=== PATIENT | male | born 1995 | race Caucasian/White ===

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

== ENCOUNTER 2017-06-21 13:40 | Emergency (ER) | payer MEDICAID, SELFPAY | END 2017-06-21 17:13 | disposition home or self-care (01) | LOC: M ED 13:40 | DX: F60.9 Personality disorder, unspecified (principal); F90.9 Attention-deficit hyperactivity disorder, unspecified type; Z79.899 Other long term (current) drug therapy | CPT/HCPCS: 99284 ==

== ENCOUNTER 2018-09-13 12:07 | Emergency (ER) | payer MEDICAID ==
[~2018-09-13] VITALS: Ht 177.8 cm; Wt 103.8 kg
[~2018-09-13 12:07] MED LIST: ADDE25CA; SERT50TA PO
[2018-09-13] MEDS ORDERED: LORazepam 2 MG/ML VIAL (J2060) IV STA (12:20)
[2018-09-13] MEDS ORDERED: ONDANSETRON 4MG/2ML VIAL (J2405) IV ONE (12:30)
[2018-09-13] MEDS: MORPHINE 4 MG/ML 1ML VIAL/SYRINGE (J2270) IV PRN ×2 (12:32→15:00)
[2018-09-13 12:34] LABS: HEMOGLOBIN 14.4 g/dl (13.5-17.5); MEAN CORPUSCULAR HEMOGLOBIN 29.6 pg (27.0-33.0); MEAN CORPUSCULAR HGB CONC 33.5 g/dl (32.0-36.5); MEAN CORPUSCULAR VOLUME 88.3 fl (80.0-96.0); PLATELET COUNT, AUTOMATED 241 10^3/uL (150-450); RED BLOOD COUNT 4.87 10^6/uL (4.30-6.10); WHITE BLOOD COUNT 7.9 10^3/uL (4.0-10.0)
[2018-09-13] MEDS ORDERED: ISOVUE-370 76% 125ML VIAL (Q9967 PER ML) As Ordered ONE (12:54)
[2018-09-13 13:04] LABS: INR 1.12; PARTIAL THROMBOPLASTIN TIME 20.4 SECONDS (25.4-37.6); PROTHROMBIN TIME 14.6 SECONDS (12.1-14.4)
[2018-09-13 13:05] LABS: ALBUMIN 4.2 GM/DL (3.2-5.2); ALT/SGPT 25 U/L (12-78); BILIRUBIN,DIRECT < 0.1 MG/DL (0.0-0.2); BILIRUBIN,TOTAL 0.4 MG/DL (0.2-1.0); BLOOD UREA NITROGEN 5 MG/DL (7-18); CARBON DIOXIDE LEVEL 24 MEQ/L (21-32); CHLORIDE LEVEL 106 MEQ/L (98-107); CREATININE FOR GFR 1.18 MG/DL (0.70-1.30); GLOMERULAR FILTRATION RATE > 60.0 (>60); GLUCOSE, FASTING 92 MG/DL (70-100); SODIUM LEVEL 139 MEQ/L (136-145); TOTAL PROTEIN 7.8 GM/DL (6.4-8.2)
--- NOTE | 2018-09-13 13:27 | REP ---
CT Head without contrast HISTORY: Trauma COMPARISON: 08/08/2015 There is no intraparenchymal hemorrhage, acute infarct, mass or midline shift. The ventricular system is normal in appearance. There is no extra cerebral collection. There is no fracture. The visualized sinuses are clear. IMPRESSION: There is no intracranial lesion. Electronically Signed by Ant De Jesus MD 09/13/2018 01:19 P
--- NOTE | 2018-09-13 13:31 | REP ---
CT cervical spine without contrast HISTORY: trauma COMPARISON: 08/08/2015 A congenital block vertebra is present at the C2-3 level. There is no acute fracture or subluxation. There is no disc bulge or herniation. The spinal canal and neural foramina are patent. The intervertebral discs and vertebral bodies are normal in height. IMPRESSION: There is no acute fracture or subluxation. Electronically Signed by Ant De Jesus MD 09/13/2018 01:22 P
--- NOTE | 2018-09-13 14:54 | REP ---
CT CHEST WITH IV CONTRAST: HISTORY: Trauma. CT CONTRAST DOSE: 100 mL of intravenous Isovue 370. CT FINDINGS: Preliminary digital commissioning editor radiograph is unremarkable except that the patient's arms are folded across the upper abdomen. He was apparently unable to raise them. Axial CT images show no evidence of pneumothorax or hemothorax. The thoracic aorta enhances homogeneously and is normal in course and caliber. There is no evidence of dissection or aneurysm. No mediastinal hematoma is seen. A small amount of residual thymic tissue is visible. The lung nguyen are clear. Bone window settings show no rib, thoracic spine, sternal, scapular or clavicular fracture. IMPRESSION: No acute disease. Electronically Signed by Luis F Renae MD 09/13/2018 05:18 P
--- NOTE | 2018-09-13 14:56 | REP ---
CT ABDOMEN AND PELVIS WITH IV BUT WITHOUT ORAL CONTRAST: HISTORY: Trauma. CONTRAST ENHANCEMENT DOSE: 100 mL of intravenous Isovue. CT FINDINGS: Preliminary director payer radiograph shows an unremarkable bowel gas pattern. The patient is oblique somewhat to the right and the patient's arms are folded across the chest and abdomen. The liver and the spleen are intact. There is some spray artifact across the liver and spleen in the upper abdomen from the arms in the field of view. The kidneys enhance symmetrically and are morphologically intact. No pancreatic mass or hematoma seen. Gallbladder is unremarkable. No retroperitoneal mass, adenopathy or hematoma is seen. Small and large intestinal bowel loops are normal in the abdomen and pelvis. The urinary bladder is intact mildly distended with urine. No abdominal wall defect is seen. No mesenteric hematoma is appreciated. No evidence of free intraperitoneal air. Bone window settings show no evidence of skeletal fracture. IMPRESSION: Negative CT study of the abdomen and pelvis. No traumatic abnormality noted. Electronically Signed by Luis F Renae MD 09/13/2018 05:18 P
[2018-09-13] MEDS ORDERED: IBUP80TA PO (15:11)
[2018-09-13 15:40] VITALS: BP 132/55
== END 2018-09-13 15:53 | disposition home or self-care (01) ==
LOC: M ED 12:07 → EDBD 12:07 → M ED 15:53
DX: F43.20 Adjustment disorder, unspecified (principal); S30.811A Abrasion of abdominal wall, initial encounter; S30.1XXA Contusion of abdominal wall, initial encounter; V84.6XXA Passenger of special agricultural vehicle injured in nontraffic accident, initial encounter; Y92.414 Local residential or business street as the place of occurrence of the external cause; F33.9 Major depressive disorder, recurrent, unspecified; Z91.5 Personal history of self-harm; F10.10 Alcohol abuse, uncomplicated; F12.10 Cannabis abuse, uncomplicated; F17.210 Nicotine dependence, cigarettes, uncomplicated
CPT/HCPCS: 70450; 71260; 72125; 74177; 80048; 80076; 85027; 85610; 85730; 93041; 94760; 96374; 96375; 96376; 99285; J2060; J2270; J2405; Q9967

== ENCOUNTER 2020-02-23 18:11 | Inpatient (IN) | payer MEDICAID, OTHER ==
[~2020-02-23] VITALS: Ht 182.9 cm; Wt 81.8 kg
[~2020-02-23 18:11] MED LIST changes: +IBUP80TA PO; +SERT-141 PO; -SERT50TA PO
[2020-02-23 19:19] LABS: AMPHETAMINES LEVEL URINE POSITIVE (NEGATIVE); BARBITURATES URINE NEGATIVE (NEGATIVE); BENZODIAZEPINES URINE NEGATIVE (NEGATIVE); CANNABINOIDS URINE POSITIVE (NEGATIVE); COCAINE METABOLITE URINE POSITIVE (NEGATIVE); METHADONE URINE NEGATIVE (NEGATIVE); OPIATES URINE NEGATIVE (NEGATIVE); PHENCYCLIDINE URINE NEGATIVE (NEGATIVE)
[2020-02-23 19:24] LABS: HEMATOCRIT 39.7 % (42.0-52.0); HEMOGLOBIN 13.1 g/dl (13.5-17.5); MEAN CORPUSCULAR HEMOGLOBIN 29.8 pg (27.0-33.0); MEAN CORPUSCULAR VOLUME 90.4 fl (80.0-96.0); PLATELET COUNT, AUTOMATED 237 10^3/uL (150-450); RED BLOOD COUNT 4.39 10^6/uL (4.30-6.10); WHITE BLOOD COUNT 6.8 10^3/uL (4.0-10.0)
[2020-02-23 19:55] LABS: ACETAMINOPHEN LEVEL < 2.0 UG/ML (10.0-30.0); ALBUMIN 3.6 GM/DL (3.2-5.2); ALT/SGPT 126 U/L (12-78); BILIRUBIN,DIRECT 0.2 MG/DL (0.0-0.2); BILIRUBIN,TOTAL 0.4 MG/DL (0.2-1.0); BLOOD UREA NITROGEN 14 MG/DL (7-18); CALCIUM LEVEL 8.7 MG/DL (8.5-10.1); CARBON DIOXIDE LEVEL 30 MEQ/L (21-32); CHLORIDE LEVEL 108 MEQ/L (98-107); CREATININE FOR GFR 1.07 MG/DL (0.70-1.30); ETHYL ALCOHOL (ETHANOL) < 0.003 % (0.000-0.010); GLOMERULAR FILTRATION RATE > 60.0 (>60); GLUCOSE, FASTING 96 MG/DL (70-100); POTASSIUM SERUM 4.2 MEQ/L (3.5-5.1); SALICYLATE LEVEL 1.7 MG/DL (5.0-30.0); SODIUM LEVEL 143 MEQ/L (136-145); THYROID STIMULATING HORMONE 0.516 uIU/ML (0.358-3.740); TOTAL PROTEIN 6.9 GM/DL (6.4-8.2)
[2020-02-24] MEDS ORDERED: MAALOX 30 ML SUSP *UDC PO PRN (09:45)
[2020-02-24] MEDS ORDERED: MOM 30ML SUSPENSION UDC PO PRN (09:45)
[2020-02-24] MEDS ORDERED: traZODone 50 MG TAB PO PRN (09:45)
[2020-02-24] MEDS ORDERED: ACETAMINOPHEN TAB 650MG DOSE (2X325MG) PO PRN (09:45)
[2020-02-24] MEDS ORDERED: OLANZapine ORAL DISINTEGRATING TAB 5MG PO PRN (09:45)
[2020-02-24 10:05] VITALS: BP 109/60
[2020-02-24] MEDS: NICOTINE 21MG/24HR 1 EA TRANSDERMAL TD SCH (12:38)
[2020-02-24] MEDS ORDERED: hydrOXYzine 50 MG TAB PO PRN (15:30)
[2020-02-24 18:27] VITALS: BP 156/70
[2020-02-25 06:26] VITALS: BP 130/59
[2020-02-25] MEDS: NICOTINE 21MG/24HR 1 EA TRANSDERMAL TD SCH (09:17)
[2020-02-25 17:53] VITALS: BP 127/58
[2020-02-26 06:26] VITALS: BP 129/71
[2020-02-26] MEDS ORDERED: AMANTADINE 100MG TABLET PO SCH (09:00)
[2020-02-26] MEDS: NICOTINE 21MG/24HR 1 EA TRANSDERMAL TD SCH (10:49)
[2020-02-26] MEDS: cloNIDine 0.1 MG TAB PO SCH ×2 (11:01→20:24)
[2020-02-26] MEDS: AMANTADINE 100MG TABLET PO SCH (11:01)
--- NOTE | 2020-02-26 11:36 | MHHPE ---
DATE: 02/24/2020 BRIEF REASON FOR ADMISSION: The patient is a 25-year-old single, employed, domiciled male who is admitted to inpatient mental health on a 9.39 after he was brought to the emergency department (ED) on a 9.41 legal transport status after making suicidal statements to his family. According to the ED reports, patient had an argument with his mother and sister. He states that she may have said something to him, and he retorted with "I don't want to live anymore." In today's interview he states that his sister and mother were "teaming up against him," and that his mother stated that she hated him. He became very upset during the interview today when I asked him to clarify what he meant by teaming up. HISTORY OF PRESENT ILLNESS: Patient states that his mother and sister were taking things out of his room, and that is upset him. He refused to answer what they were removing from his room and states, "I can't stay here. I don't belong with these psychopaths. I am not like these people. I don't even need to be here." IN the interview, patient presents very agitated and irritable, stating he needs to be discharged today because he has a job to go to. It is very clear he is attempting to minimize his need for admission. According to the ED reports, mother was removing things from his car and putting things into his room, when he because very aggressive and agitated and stated that he was going to kill her and himself. According to the ED report, patient was making suicidal statements, but currently denying depression in my interview with him. His collaterals stated that his agitation and his polysubstance use had resulted in an overdose two weeks ago, where he was found unresponsive, and his father performed cardiopulmonary resuscitation (CPR). SUICIDAL AND HOMICIDAL HISTORY: Patient has a history of hanging per prior reports, history of multiple suicide attempts. In his last psychiatric hospitalization he reported to the psychiatrist that he had a history of attempting to hang himself but would not elaborate in that report. SUBSTANCE USE HISTORY: Reports daily use of Vero, history of cocaine, heroin, alcohol, and marijuana use. Would not report whether he has had past treatments. States his last use of Vero was on 02/23/2020. PAST PSYCHIATRIC ADMISSIONS: Patient has had one psychiatric admission. In October [address] Akers's service. Multiple suicide attempts. One reports he attempted hanging. He had an overdose 2 weeks ago, where he had overdosed on heroin but denied this to the ED. States that he wanted to sleep, but this was not a suicide attempt. Reports history of attention deficit hyperactivity disorder (ADHD) and bipolar disorder. FAMILY HISTORY OF PSYCHIATRIC ILLNESSES, ADDICTIONS, AND SUICIDES: No reports of any psychiatric problems. He reports no completed suicides. MEDICAL HISTORY: Patient denies any medical history. SURGICAL HISTORY: Patient refuses to answer. Gets frustrated in the interview and leaves. ALLERGIES: No known drug allergies from ED reports. SOCIAL HISTORY: The social history was obtained from his last psychiatric assessment as well as ED reports. Patient born to both parents. Currently residing with his parents. He has a sister. Only went to the 10th grade, and he dropped out of school and went to work thereafter. States he has had trouble in school due to his reports of attention deficit hyperactivity disorder. Currently he is employed and reports that he does not want to stay because he is supposed to return to work. HISTORY OF : None. HISTORY OF LEGAL: Patient refused to answer questions. HISTORY OF TRAUMA: Patient refused to answer. STRESSORS AND SUPPORTS: Patient refused to answer. According to ED reports, patient's stressors are his substance use and abuse. His supports are his parents and family. REVIEW OF PSYCHIATRIC SYSTEMS: Patient refused to participate in this, and he left the interview. Per ED reports, he complains of depression, anxiety, and irritable behaviors, poor appetite, and poor sleep. Per his family, they report aggression, agitation, anger, anxiety, labile mood, and poor impulse. Please see the medical history and physical for this admission by medical doctor. MENTAL STATUS EXAMINATION: Patient is a 25-year-old single, employed, domiciled male. He is wearing hospital scrub bottoms and T-shirt. His dressing and grooming are fair. He is uncooperative in the interview, minimizing his behaviors and his participation in the events that brought him to the hospital. Patient states that his mother was taking things out of his room, and this angered him. He denies that he made a suicidal statement. He has hypervigilant eye contact, has loud pressured speech. Denies suicidal or homicidal ideation, planning or intent at this time. He is linear and goal oriented most of the time, but throughout the interview he did display disorganized thinking as well as scattered thinking. His cognitive functioning is congruent with his education, and his memory is intact, but he is unable to answer questions due to his frustration and not necessarily any memory loss. He denies and is not observed with any paranoia, grandiosity, persecutory, somatic, or caodaism delusions. He is not observed and denies delusions, auditory and visual hallucinations, depression, or suicidal thoughts. He is severely impaired in his Insight and judgment, minimizing all of his symptoms and denies suicidal ideation. DIAGNOSES: 1. Stimulant-induced depressive disorder. 2. Stimulant use disorder. 3. Alcohol use disorder. 4. Cannabis use disorder. 5. Unspecified mood disorder. TREATMENT PLAN: Admit to my service on a 9.3 legal status. We will contact family for expanded history with his permission. Patient will be afforded individual and group therapy, psychopharmacological therapies, restrict to unit, vital signs per unit policy. Patient is to participate in his therapies, will take medications as prescribed toward stabilization. He will be discharged in 3- 5 days. Patient will be treated for his reports of depression and anxiety, his impulsivity, and substance use and abuse. LYN
--- NOTE | 2020-02-26 13:31 | MHIPNPDOC ---
[facility] Progress Note Progress Note DATE OF SERVICE: 02/26/20 HISTORY: Patient is a 25 year old Single, Employed, Domiciled, Male who presented to the hospital after he made suicidal statements to his mother. He also made homicidal thoughts towards his mother. In his interview, he states that his mother was taking out of his room and this angered him. According to reports patient has a long history of polysubstance abuse. He reports that he recently used "Vero" patient has a history of cocaine, heroin, ETOH and marijuana use. VITAL SIGNS: See below. NEW TEST RESULTS: see results. CURRENT MEDICATIONS: See below. MENTAL STATUS EXAMINATION: Patient is a 25-year old male, who is admitted for threats of self harm to self and others. Patient has a long history of polysubstance use and has a recent history of aggression, anger and agitation against his family. Speech: Is normal rate tone and volume Language skills are fair Thought processes including: linear and goal oriented Thought content: Denies Abstract reasoning, and computation: fair Description of associations: Denies Description of abnormal or psychotic thoughts: Denies Judgment: Fair Insight: Fair Orientation: Alert and oriented Recent and remote memory: Intact Attention span and concentration: Average Language: Good/Taiwanese Fund of knowledge: Average Mood: Irritable. Affect: Flat. DIAGNOSES: 1. Unspecified Depressive Disorder 2. Stimulant Use Disorder 3. Alcohol Use Disorder 4. Tobacco Use Disorder 5. Cannabis Use Disorder 6. Opioid Use Disorder ASSESSMENT: Patient reports no depression relating to his admission. He does however, state "Yes I am depressed because I am here." Patient reports mild anxiety and denies suicidal ideation and homicidal ideation. He denies paranoia, obsessions, delusional thoughts, auditory and visual hallucinations. He states that he wants to stay in his room until he is able to leave. He reports fear that he no longer has a job because he did not report to work yesterday. MANAGEMENT PLAN: Patient will be discharged in 2-3 days. He does not report any withdrawal symptoms. TIME SPENT: 30 minutes. Vital Signs Vital Signs Date Time Temp Pulse Resp B/P (MAP) Pulse Ox O2 Delivery O2 Flow Rate FiO2 02/26/20 11:01 129/71 02/26/20 06:26 98.1 56 16 02/24/20 18:27 98 Room Air Current Medications Current Medications Medications (Trade) Dose Ordered Sig/Michael Route PRN Reason Start Time Stop Time Status Last Admin Dose Admin Acetaminophen (Tylenol Tab) 650 mg Q6HP PRN PO HEADACHE or DISCOMFORT 02/24/20 09:45 Al Hydrox/Mg Hydrox/Simethicone (Mylanta) 30 ml Q4HP PRN PO HEARTBURN/INDIGESTION 02/24/20 09:45 Amantadine HCl (Symmetrel) 100 mg BID PO 02/26/20 09:00 02/26/20 07:38 DC Amantadine HCl (Symmetrel) 100 mg DAILY PO 02/26/20 09:00 02/26/20 11:01 Clonidine HCl (Catapres) 0.1 mg BID PO 02/26/20 09:00 02/26/20 11:01 Home Med (Med Rec Complete!) ASDIRECTED XX 02/24/20 10:00 02/24/20 10:07 DC Hydroxyzine HCl (Atarax) 50 mg Q4HP PRN PO ANXIETY/AGITATION 02/24/20 15:30 Magnesium Hydroxide (Milk Of Magnesia) 30 ml DAILYPRN PRN PO CONSTIPATION 02/24/20 09:45 Mirtazapine (Remeron) 15 mg QPM PO 02/26/20 21:00 Nicotine (Nicoderm Cq 21mg) 1 patch DAILY TD 02/24/20 09:00 02/26/20 10:49 Olanzapine (ZyPREXA ZYDIS) 5 mg Q4HP PRN PO AGITATION 02/24/20 09:45 02/25/20 14:55 Trazodone HCl (Desyrel) 50 mg QHSP PRN PO INSOMNIA 02/24/20 09:45 02/26/20 07:34 DC Allergies Coded Allergies: No Known Allergies (Unverified , 11/02/16) GIORGIO VILLATORO NP Feb 26, 2020 13:31
[2020-02-26 17:53] VITALS: BP 121/64
[2020-02-26 20:24] VITALS: BP 121/64
[2020-02-26] MEDS ORDERED: MIRTAZAPINE 15 MG TAB PO SCH (21:00)
[2020-02-27 06:43] VITALS: BP 125/59
[2020-02-27] MEDS: cloNIDine 0.1 MG TAB PO SCH (09:06)
[2020-02-27] MEDS: AMANTADINE 100MG TABLET PO SCH (09:06)
[2020-02-27] MEDS: NICOTINE 21MG/24HR 1 EA TRANSDERMAL TD SCH (09:07)
--- NOTE | 2020-02-27 09:57 | MHHPE ---
DATE OF ADMISSION: 02/24/2020 DATE OF EVALUATION: 02/24/2020 This is a 25-year-old man, who apparently was involved in an altercation with a family member, the police were called, the patient made some suicidal statement. The patient was stating that he is very angry at family due to the things that they said to him and he said that he did not want to . He said that during the argument with his mother, I said some stupid things. He says he does not remember exactly what he said, but he admits that maybe he did tell her that he did not want to live anymore. According to the emergency room records, the concern was that when they spoke with the patients mother, the mother described that the patient became angry, he started to voice threats about killing her and himself, that he was throwing things, broke a door. She indicated that this has been going on for many years but that it has been worse frequently. The main concern was that 2 weeks ago they said that the patient took an overdose and he was not breathing and that the family revived him and that he had overdosed on heroin. According to the record, apparently the patient stated that it was not a suicidal attempt, but the family was concerned that it was, and so it was not possible to set up safe discharge for this patient as both the patients mother and the patients grandmother were refusing to take the patient back home because they were concerned about his safety. The patients toxicology was positive for amphetamine, cocaine, and cannabis. The patient tells me today that his problem is I just need to get off the stimulants. He says he has been using drugs for many years but it has really gotten bad lately. He has been using amphetamines up to 10 days at a time and then he says when he stops using it he is not able to sleep and then he tries using heroin to get himself to sleep. So, he says that his mind is going all the time and his main problem is not being able to sleep. He admits that he is mean as hell all the time, I get aggravated all the time. He feels that he needs some medication to help him sleep. I did not elicit any hypomanic or manic-like symptoms or posttraumatic stress disorder (PTSD) or obsessive compulsive disorder (OCD) or panic-like symptoms in this patient. PAST PSYCHIATRIC HISTORY: The patient had a prior hospitalization to [facility] in 2017. He says that he has never intentionally made any suicidal attempt. ABUSE HISTORY: Denies any history of any physical or sexual abuse. FAMILY HISTORY: He said his father and grandfather both had trouble with drugs, but he says that they have stopped now. MEDICAL HISTORY: He denies any medical problems. SUBSTANCE ABUSE HISTORY: This is as noted above. PAST PSYCHIATRIC HISTORY: The patient has had psychiatric treatment as an outpatient since he was very young but he is not the best historian, but I was able to see that in 2011 he did have some outpatient treatment with the psychiatrists at [facility] and he was treated for attention deficit hyperactivity disorder (ADHD). REVIEW OF SYSTEMS: Vital signs: Blood pressure 109/60, pulse 61, respiratory rate 14. Appearance: He did not appear to be in any apparent distress. Neuromuscular system: The patients gait was normal. There was no involuntary movements noted. All other systems were reviewed and found to be negative. MENTAL STATUS EXAMINATION: This patient is alert and oriented times three. Eye contact is fair. Psychomotor activity is increased due to anxiety. There is no formal thought disorder noted. His mood is anxious. Affect full range and appropriate. He is not psychotic. He is denying suicidal or homicidal ideation. Concentration is fair. Memory intact. Insight and judgment is fair. DIAGNOSES: Substance induced mood disorder. Stimulant use disorder. Cannabis use disorder. Opioid use disorder. TREATMENT PLAN: At this point, the patient was admitted due to the fact that he was voicing suicidal and homicidal thoughts towards himself and family and exhibiting aggressive behavior. There was no safe discharge plan and his family was not willing to take him home. The patient apparently almost killed himself 2 weeks ago by overdose which the patient says was accidental but the family feels it was intentional, and therefore he does tend to show poor judgment. He says that his main problem is not being able to sleep at night, so he will be taking the trazodone 50 mg nightly as needed for insomnia, and I did write for some hydroxyzine 50 mg every 4 hours as needed for anxiety, but I did discuss with the patient that it is important for him to consider going to outpatient addictions treatment when he is discharged and if that is not successful in him stopping the drugs that he should consider performing inpatient treatment for the substance abuse. LYN
--- NOTE | 2020-02-27 10:11 | MHDSPDOC ---
[facility] Discharge Summary Discharge Summary DATE OF ADMISSION: Feb 24, 2020 at 09:35 DATE OF DISCHARGE: February 27, 2020, 10:02 DISCHARGE DIAGNOSES: 1. Unspecified depressive disorder 2. Stimulant Use Disorder 3. Alcohol Use Disorder 4. Tobacco Use Disorder 5. Cannabis Use Disorder 6. Opioid Use Disorder REASON FOR ADMISSION: Patient is a 25 year old Single, Employed, Male who was brought to [facility] after making threats to harm his mother and himself. Patient has one other psychiatric admission in October of 2016 and was under the service of Dr. Akers. He reported to this provider that he was upset that his mother and sister were removing items from his bedroom. According to the ED reports, the mother was removing things from his car and placing them into his room. Pt was agitated and reticent when discussing the argument that lead to him making a suicidal statement. According to his mother, patient has a long history of polysubstance use and abuse. Patient states that he had been on Vero, Heroin, and Alcohol. He was admitted for his threats of self harm to himself and others. CONSULTANTS INVOLVED: See Medical H+P by Medical consult. TREATMENT AND PROGRESS ON THE UNIT : Patient was afforded treatment for his agitation. HOSPITAL COURSE: During his admission patient was withdrawn to his room, sleeping most the time. He denied suicidal ideation throughout this admission. He initially had reported some depression but denies that is current. He was not observed with temo, paranoia, psychosis, auditory or visual hallucinations. DISCHARGE ASSESSMENT: Patient is not longer agitated, irritable and hostile. He reports good effects of Zyprexa. He is stable discharge. At this time, patient did not meet criteria for medications. He was not reporting depressive symptoms that were clinical in nature. His depressive symptoms stemmed from Substance Use and Abuse. His agitation, aggression and hostility, may be depression as well but patient agreed in his interview that he has been using Heroin, Vero and Cannabis for a long period of time and that he readily agreed that he was withdrawing from these drugs. We discussed his need for harm reduction and need for rehab treatment. Patient refused to participate in the discussion and would relay that his mother is ruining his life because she will not allow him to return to home. She is also not allowing him to retrieve his things. Patient is reporting that he may stay with his girlfriend. Tax Director will discuss with him process for emergency housing at [facility], patient was agreeable to this information. He reports to me that he wants to return to work, hoping that he still has a job. MENTAL STATUS EXAMINATION ON DISCHARGE: Patient is a 25-year old male, he appears his stated age. He is admitted to [facility] after making suicidal and homicidal threats. In today's interview he is reporting no abnormal psychiatric symptoms. He denies depression, anxiety, suicidal/homicidal ideation, planning or intent. He is not observed and denies paranoid thoughts, delusions, obsessions or auditory/visual hallucinations. His grooming and hygiene is fair. His eye contact is good. Speech is normal rate, tone and volume. Language skills are far. Thought processes including: linear and goal oriented, reality based. Thought content: Negative Abstract reasoning, and computation: Fair Description of associations: Negative Description of abnormal or psychotic thoughts: Negative Judgment: Fair Insight: Fair Orientation to alert and oriented Recent and remote memory: Intact. Attention span and concentration: Fair. Language: Fair Fund of knowledge: Average Mood: Euthymic Affect: Euthymic, congruent MEDICATIONS ON DISCHARGE: No medications were prescribed. PLAN/FOLLOWUP ARRANGEMENTS: See discharge planners documentation The amount of time spent in the coordination of care for this patient was approximately 25 minutes. Vital Signs/I&Os Vital Signs Date Time Temp Pulse Resp B/P (MAP) Pulse Ox O2 Delivery O2 Flow Rate FiO2 02/27/20 06:43 97.6 51 16 125/59 (81) Room Air 02/24/20 18:27 98 Medications No Active Prescriptions or Reported Meds Allergies Coded Allergies: No Known Allergies (Unverified , 11/02/16) GIORGIO VILLATORO TEAM PRIMARY CARE PHYSICIAN Feb 27, 2020 10:11
== END 2020-02-27 11:00 | disposition home or self-care (01) | DRG 754 ==
LOC: M ED 18:11 → M ED INP 02-24 09:35 → M PSY 02-24 10:20
PROVIDERS: ADMIT Psychiatry & Neurology Psychiatry; ATTEND Psychiatry & Neurology Psychiatry
DX: F32.9 Major depressive disorder, single episode, unspecified (principal); F10.10 Alcohol abuse, uncomplicated; F17.200 Nicotine dependence, unspecified, uncomplicated; F12.90 Cannabis use, unspecified, uncomplicated; F11.90 Opioid use, unspecified, uncomplicated; F15.90 Other stimulant use, unspecified, uncomplicated

== ENCOUNTER → 2021-09-22 | Outpatient (CLI) | payer MEDICAID | LOC: M OUTALCOH 08:49 | PROVIDERS: ATTEND Psychiatry & Neurology Psychiatry | DX: Z02.9 Encounter for administrative examinations, unspecified (principal) ==

== ENCOUNTER 2021-10-23 08:40 | Outpatient (RCR) | payer MEDICAID, OTHER | END 2021-10-24 | LOC: M OUTALCOH 08:40 | PROVIDERS: ATTEND Psychiatry & Neurology Psychiatry | DX: F16.20 Hallucinogen dependence, uncomplicated (principal) ==

== ENCOUNTER → 2021-10-29 | Outpatient (REF) | payer OTHER | LOC: M LABDRAWC 16:04 | DX: B18.2 Chronic viral hepatitis C (principal) ==

== ENCOUNTER 2021-11-01 13:14 | Emergency (ER) | payer OTHER ==
[~2021-11-01] VITALS: Ht 182.9 cm; Wt 118.0 kg
[2021-11-01 13:28] VITALS: BP 119/87
[2021-11-01 15:11] LABS: HEMATOCRIT 46.4 % (42.0-52.0); HEMOGLOBIN 15.4 g/dl (13.5-17.5); MEAN CORPUSCULAR HEMOGLOBIN 28.6 pg (27.0-33.0); MEAN CORPUSCULAR HGB CONC 33.2 g/dl (32.0-36.5); MEAN CORPUSCULAR VOLUME 86.1 fl (80.0-96.0); PLATELET COUNT, AUTOMATED 282 10^3/uL (150-450); RED BLOOD COUNT 5.39 10^6/uL (4.30-6.10); WHITE BLOOD COUNT 8.8 10^3/uL (4.0-10.0)
[2021-11-01] MEDS ORDERED: HYDR50TA70 PO (15:30)
[2021-11-01] MEDS ORDERED: PROP10TA56 PO (15:30)
[2021-11-01] MEDS ORDERED: ATOM40CA9 PO (15:30)
[2021-11-01] MEDS ORDERED: SERT50TA29 PO (15:42)
[2021-11-01] MEDS ORDERED: GABA-1171 PO (15:42)
[2021-11-01 15:44] LABS: ACETAMINOPHEN LEVEL < 2.0 UG/ML (10.0-30.0); ALBUMIN 4.1 GM/DL (3.2-5.2); ALT/SGPT 23 U/L (12-78); AMPHETAMINES LEVEL URINE NEGATIVE (NEGATIVE); BARBITURATES URINE NEGATIVE (NEGATIVE); BENZODIAZEPINES URINE NEGATIVE (NEGATIVE); BILIRUBIN,DIRECT 0.2 MG/DL (0.0-0.2); BILIRUBIN,TOTAL 0.7 MG/DL (0.2-1.0); BLOOD UREA NITROGEN 12 MG/DL (7-18); CALCIUM LEVEL 9.2 MG/DL (8.5-10.1); CANNABINOIDS URINE POSITIVE (NEGATIVE); CARBON DIOXIDE LEVEL 27 MEQ/L (21-32); CHLORIDE LEVEL 107 MEQ/L (98-107); COCAINE METABOLITE URINE NEGATIVE (NEGATIVE); CREATININE FOR GFR 1.06 MG/DL (0.70-1.30); ETHYL ALCOHOL (ETHANOL) < 0.003 % (0.000-0.010); GLOMERULAR FILTRATION RATE > 60.0 (>60); GLUCOSE, FASTING 101 MG/DL (70-100); METHADONE URINE NEGATIVE (NEGATIVE); OPIATES URINE NEGATIVE (NEGATIVE); PHENCYCLIDINE URINE NEGATIVE (NEGATIVE); POTASSIUM SERUM 3.8 MEQ/L (3.5-5.1); SALICYLATE LEVEL < 1.7 MG/DL (5.0-30.0); SODIUM LEVEL 138 MEQ/L (136-145); TOTAL PROTEIN 7.8 GM/DL (6.4-8.2)
[2021-11-01] MEDS ORDERED: HOME MED LIST COMPLETE! XX SCH (15:45)
== END 2021-11-01 18:17 | disposition home or self-care (01) ==
LOC: M ED 13:14
DX: Z04.6 Encounter for general psychiatric examination, requested by authority (principal); F15.10 Other stimulant abuse, uncomplicated; F90.9 Attention-deficit hyperactivity disorder, unspecified type; Z79.899 Other long term (current) drug therapy; F17.210 Nicotine dependence, cigarettes, uncomplicated

== ENCOUNTER 2021-11-19 08:00 | Outpatient (RCR) | payer MEDICAID ==
[~2021-11-19 08:00] MED LIST changes: +ATOM40CA9 PO; +GABA-1171 PO; +HYDR50TA70 PO; +PROP10TA56 PO; +SERT50TA29 PO
== END 2021-11-24 ==
LOC: M OUTALCOH 08:00
PROVIDERS: ATTEND Psychiatry & Neurology Psychiatry
DX: F16.20 Hallucinogen dependence, uncomplicated (principal)

== ENCOUNTER 2021-12-17 09:00 | Outpatient (RCR) | payer MEDICAID | END 2021-12-24 | LOC: M OUTALCOH 09:00 | PROVIDERS: ATTEND Psychiatry & Neurology Psychiatry | DX: F16.20 Hallucinogen dependence, uncomplicated (principal) ==

== ENCOUNTER → 2021-12-30 | Outpatient (REF) | payer MEDICAID | LOC: M LABDRAWC 15:56 | PROVIDERS: ATTEND Physician Assistant | DX: B18.2 Chronic viral hepatitis C (principal) ==

== ENCOUNTER 2022-07-09 04:08 | Inpatient (IN) | payer OTHER ==
[~2022-07-09] VITALS: Ht 182.9 cm; Wt 109.0 kg
[2022-07-09 04:48] LABS: HEMATOCRIT 42.2 % (42.0-52.0); HEMOGLOBIN 13.8 g/dl (13.5-17.5); MEAN CORPUSCULAR HEMOGLOBIN 28.4 pg (27.0-33.0); MEAN CORPUSCULAR HGB CONC 32.7 g/dl (32.0-36.5); MEAN CORPUSCULAR VOLUME 86.8 fl (80.0-96.0); PLATELET COUNT, AUTOMATED 258 10^3/uL (150-450); RED BLOOD COUNT 4.86 10^6/uL (4.30-6.10); WHITE BLOOD COUNT 8.9 10^3/uL (4.0-10.0)
[2022-07-09 05:25] LABS: RSV AMPLIFICATION NEGATIVE (NEGATIVE)
[2022-07-09 05:30] LABS: ETHYL ALCOHOL (ETHANOL) 0.003 % (0.000-0.010)
[2022-07-09 05:31] LABS: ACETAMINOPHEN LEVEL < 2.0 UG/ML (10.0-20.0)
[2022-07-09 05:32] LABS: ALBUMIN 4.1 G/DL (3.2-5.2); ALKALINE PHOSPHATASE 67 U/L (46-116); ALT/SGPT 32 U/L (7.0-40); AST/SGOT 50 U/L (<34); BILIRUBIN,DIRECT 0.2 MG/DL (<0.4); BILIRUBIN,TOTAL 0.5 MG/DL (0.3-1.2); BLOOD UREA NITROGEN 15 MG/DL (9-23); CALCIUM LEVEL 9.7 MG/DL (8.5-10.1); CARBON DIOXIDE LEVEL 22 MMOL/L (20-31); CHLORIDE LEVEL 107 MMOL/L (98-107); CREATININE FOR GFR 0.97 MG/DL (0.70-1.30); GLOMERULAR FILTRATION RATE > 60.0 (>60); GLUCOSE, FASTING 78 MG/DL (60-100); SALICYLATE LEVEL < 3.0 MG/DL (<30); SODIUM LEVEL 139 MMOL/L (136-145); TOTAL PROTEIN 7.3 G/DL (5.7-8.2)
[2022-07-09] MEDS ORDERED: HOME MED LIST COMPLETE! XX SCH (06:30)
[2022-07-09 06:48] LABS: BARBITURATES URINE NEGATIVE (NEGATIVE); BENZODIAZEPINES URINE NEGATIVE (NEGATIVE); COCAINE METABOLITE URINE NEGATIVE (NEGATIVE); METHADONE URINE NEGATIVE (NEGATIVE); OPIATES URINE NEGATIVE (NEGATIVE); PHENCYCLIDINE URINE NEGATIVE (NEGATIVE)
[2022-07-09 06:55] LABS: AMPHETAMINES LEVEL URINE POSITIVE (NEGATIVE); CANNABINOIDS URINE POSITIVE (NEGATIVE)
[2022-07-09] MEDS ORDERED: OLANZapine ORAL DISINTEGRATING TAB 5MG PO ONE (07:25)
[2022-07-09 07:44] LABS: THYROID STIMULATING HORMONE 0.696 uIU/ML (0.55-4.78)
[2022-07-10] MEDS ORDERED: MOM 30ML SUSPENSION UDC PO PRN (16:30)
[2022-07-10] MEDS ORDERED: ACETAMINOPHEN TAB 650MG DOSE (2X325MG) PO PRN (16:30)
[2022-07-10] MEDS ORDERED: MAALOX 30 ML SUSP *UDC PO PRN (16:30)
[2022-07-10] MEDS ORDERED: OLANZapine ORAL DISINTEGRATING TAB 5MG PO PRN (16:30)
[2022-07-10 18:21] VITALS: BP 147/69
[2022-07-10] MEDS: traZODone 50 MG TAB PO PRN (20:21)
[2022-07-10] MEDS: NICOTINE 21MG/24HR 1 EA TRANSDERMAL TD PRN (20:21)
[2022-07-10] MEDS: DIVALPROEX 500MG *ER* TAB PO SCH (20:21)
[2022-07-11 06:20] VITALS: BP 110/54
[2022-07-11] MEDS: NICOTINE 21MG/24HR 1 EA TRANSDERMAL TD PRN (09:57)
[2022-07-11] MEDS: traZODone 50 MG TAB PO PRN (20:03)
[2022-07-11] MEDS: DIVALPROEX 500MG *ER* TAB PO SCH (20:04)
[2022-07-12 06:42] VITALS: BP 133/76
[2022-07-12] MEDS: DIVALPROEX 500MG *ER* TAB PO SCH ×2 (08:55→20:17)
[2022-07-12] MEDS: NICOTINE 21MG/24HR 1 EA TRANSDERMAL TD PRN (08:55)
[2022-07-12 17:47] VITALS: BP 146/80
[2022-07-12] MEDS: traZODone 50 MG TAB PO PRN (20:17)
[2022-07-13 06:41] VITALS: BP 120/58
[2022-07-13 07:54] LABS: VALPROIC ACID (DEPAKOTE) 65.5 UG/ML (50.0-100.0)
[2022-07-13 07:55] LABS: CHOLESTEROL RISK RATIO 3.6 (<5); HDL CHOLESTEROL 38.6 MG/DL (>40); LDL CHOLESTEROL 81.2 MG/DL (<100)
[2022-07-13] MEDS: DIVALPROEX 500MG *ER* TAB PO SCH ×2 (09:03→20:17)
[2022-07-13] MEDS: NICOTINE 21MG/24HR 1 EA TRANSDERMAL TD PRN (09:03)
[2022-07-13 16:58] VITALS: BP 134/89
[2022-07-13] MEDS: traZODone 50 MG TAB PO PRN (20:16)
[2022-07-13] MEDS ORDERED: OLANZapine 5 MG TAB PO SCH (21:00)
[2022-07-14 06:48] VITALS: BP 125/60
[2022-07-14] MEDS: DIVALPROEX 500MG *ER* TAB PO SCH (09:23)
[2022-07-14] MEDS ORDERED: OLAN1TAB16 PO (10:58)
[2022-07-14] MEDS ORDERED: TRAZ-252 PO (10:58)
[2022-07-14] MEDS ORDERED: DEPA500T2 PO ×2 (10:58)
[2022-07-14] MEDS ORDERED: NICO21PAT TD (10:58)
[2022-07-16] MEDS ORDERED: DEPA500T2 PO (10:13)
== END 2022-07-14 13:24 | disposition home or self-care (01) | DRG 750 ==
LOC: M ED 04:08 → M ED INP 07-10 16:27 → M PSY 07-10 17:36
PROVIDERS: ADMIT Student in an Organized Health Care Education/Training Program; ATTEND Student in an Organized Health Care Education/Training Program
DX: F25.0 Schizoaffective disorder, bipolar type (principal); F15.93 Other stimulant use, unspecified with withdrawal; Z63.0 Problems in relationship with spouse or partner; Z91.52 Personal history of nonsuicidal self-harm; F17.210 Nicotine dependence, cigarettes, uncomplicated; R45.851 Suicidal ideations; R45.850 Homicidal ideations; Z20.822 Contact with and (suspected) exposure to COVID-19

== ENCOUNTER 2022-12-25 22:19 | Emergency (ER) | payer OTHER ==
[~2022-12-25] VITALS: Ht 182.9 cm; Wt 87.1 kg
[~2022-12-25 22:19] MED LIST changes: +DEPA500T2 PO; +NICO21PAT TD; +OLAN1TAB16 PO; +TRAZ-252 PO
[2022-12-25] MEDS ORDERED: CEPHALEXIN 500 MG CAP PO ONE (23:35)
[2022-12-25] MEDS ORDERED: MUPIROCIN 2% OINT 22 GM TUBE TOP ONE (23:35)
[2022-12-25] MEDS ORDERED: predniSONE 20 MG TAB PO ONE (23:35)
[2022-12-25 23:38] VITALS: BP 127/68; TEMP 98.8; O2SAT 98
[2022-12-25] MEDS ORDERED: PRED10TA2 PO (23:39)
[2022-12-25] MEDS ORDERED: CEPH500C PO (23:39)
[2022-12-25] MEDS ORDERED: MUPI2OI TOP (23:39)
== END 2022-12-25 23:50 | disposition home or self-care (01) ==
LOC: M ED 22:19
DX: L23.7 Allergic contact dermatitis due to plants, except food (principal); L03.211 Cellulitis of face; F90.9 Attention-deficit hyperactivity disorder, unspecified type; F17.210 Nicotine dependence, cigarettes, uncomplicated; Z79.899 Other long term (current) drug therapy
CPT/HCPCS: 99283; J7512

== ENCOUNTER → 2024-04-26 | Outpatient (REF) | payer MEDICAID, OTHER ==
[~2024-04-26] MED LIST changes: +CEPH500C PO; +MUPI2OI TOP; +PRED10TA2 PO
== END ==
LOC: M LAB REF 17:11
PROVIDERS: ATTEND Otolaryngology
DX: J02.0 Streptococcal pharyngitis (principal)

== ENCOUNTER → 2024-06-29 | Outpatient (CLI) | payer MEDICAID | LOC: M PLAIMG 10:27 | PROVIDERS: ATTEND Otolaryngology | DX: H61.22 Impacted cerumen, left ear (principal) ==

== ENCOUNTER 2024-08-23 11:35 | Day surgery (SDC) | payer MEDICAID ==
[~2024-08-23] VITALS: Ht 182.9 cm; Wt 78.9 kg
[~2024-08-23 11:35] MED LIST changes: +PANT40TA29 PO
[2024-08-23] MEDS ORDERED: propofoL 200 MG/20 ML VIAL As Ordered ONE (12:38)
[2024-08-23] MEDS ORDERED: LIDOCAINE 2% 100MG/5ML SDV (FOR ANES.) As Ordered ONE (12:39)
[2024-08-23] MEDS ORDERED: ONDANSETRON 4MG 2ML VIAL As Ordered ONE (12:39)
[2024-08-23] MEDS ORDERED: fentaNYL 100 MCG/2 ML INJECTION As Ordered ONE (12:40)
[2024-08-23] MEDS ORDERED: MIDAZOLAM INJ 2MG/2ML VIAL As Ordered ONE (12:40)
[2024-08-23] MEDS ORDERED: dexmedeTOMIDine (4MCG/ML)200MCG/50ML BTL (PRECEDEX) As Ordered ONE (12:42)
[2024-08-23] MEDS: LR 1,000 ML IV SCH (12:44)
[2024-08-23] MEDS ORDERED: ACETAMINOPHEN 1000MG/100ML IV BAG As Ordered ONE (14:05)
[2024-08-23] MEDS: CIPRODEX OTIC SUSP 7.5ML As Ordered ONE (14:20)
[2024-08-23] MEDS ORDERED: LR 1,000 ML IV SCH (14:25)
[2024-08-23] MEDS ORDERED: HYDROMORPHONE HCL 0.5 MG/ 0.5 ML SYRINGE IV PRN (14:25)
[2024-08-23] MEDS ORDERED: ONDANSETRON 4MG 2ML VIAL IV PRN (14:25)
[2024-08-23] MEDS ORDERED: fentaNYL 100 MCG/2 ML INJECTION IV PRN (14:25)
[2024-08-23] MEDS ORDERED: oxyCODONE 5MG TAB PO PRN (14:25)
[2024-08-23] MEDS: CIPROFLOXACIN HC OTIC SUSPENSION As Ordered ONE (14:35)
[2024-08-23] MEDS: OXYMETAZOLINE 0.05% NASAL SPRAY As Ordered ONE (14:35)
[2024-08-23 15:15] VITALS: BP 113/65; TEMP 97; O2SAT 100
== END 2024-08-23 15:46 | disposition home or self-care (01) ==
LOC: M SDC 11:35
PROVIDERS: ATTEND Otolaryngology
DX: H65.23 Chronic serous otitis media, bilateral (principal); J30.81 Allergic rhinitis due to animal (cat) (dog) hair and dander; F17.210 Nicotine dependence, cigarettes, uncomplicated; Z91.030 Bee allergy status; Z90.89 Acquired absence of other organs
CPT/HCPCS: 69436; J0131; J1100; J2250; J2405; J3010